=== PATIENT | male | born 2000 | race Asian ===

== ENCOUNTER 2020-10-20 18:35 | Emergency (ER) | payer MEDICAID ==
[~2020-10-20] VITALS: Ht 180.3 cm; Wt 72.7 kg
[2020-10-20] MEDS ORDERED: HYDROCODONE/ACETAMINOPHEN 5-325 MG TABLET PO ONE (20:00)
[2020-10-20 20:40] VITALS: BP 131/86
== END 2020-10-20 21:00 | disposition home or self-care (01) ==
LOC: EMS 18:38
DX: S43.401A Unspecified sprain of right shoulder joint, initial encounter (principal); Z91.010 Allergy to peanuts; W21.05XA Struck by basketball, initial encounter; Y93.67 Activity, basketball; Y92.89 Other specified places as the place of occurrence of the external cause; Y99.8 Other external cause status
CPT/HCPCS: 71045; 99284

== ENCOUNTER 2020-12-12 10:37 | Emergency (ER) | payer MEDICAID ==
[~2020-12-12] VITALS: Ht 182.9 cm; Wt 70.5 kg
[2020-12-12 11:30] VITALS: BP 117/75
== END 2020-12-12 11:56 | disposition home or self-care (01) ==
LOC: EMS 10:40
DX: L30.9 Dermatitis, unspecified (principal); J45.909 Unspecified asthma, uncomplicated; F12.90 Cannabis use, unspecified, uncomplicated; Z91.010 Allergy to peanuts
CPT/HCPCS: 99283; Z7502

== ENCOUNTER 2021-09-08 10:13 | Emergency (ER) | payer SELFPAY ==
[~2021-09-08] VITALS: Ht 182.9 cm; Wt 70.0 kg
[2021-09-08 10:37] VITALS: BP 122/59
== END 2021-09-08 12:00 | disposition home or self-care (01) ==
LOC: EMS 10:20
DX: M25.561 Pain in right knee (principal); Z91.010 Allergy to peanuts
CPT/HCPCS: 29505; 99283

== ENCOUNTER 2022-01-25 10:59 | Emergency (ER) | payer SELFPAY ==
[~2022-01-25] VITALS: Ht 182.9 cm; Wt 72.7 kg
[2022-01-25 11:06] VITALS: BP 124/65
[2022-01-25 11:16] LABS: COVID AG,FIA SOURCE NASAL SWAB
[2022-01-25 11:33] LABS: INFLUENZA TYPE A NEGATIVE FOR TYPE A (NEGATIVE); INFLUENZA TYPE B NEGATIVE FOR TYPE B (NEGATIVE)
[2022-01-25] MEDS ORDERED: IBUPROFEN 600 MG TABLET PO ONE (12:15)
== END 2022-01-25 12:44 | disposition home or self-care (01) ==
LOC: EMS 10:59
DX: U07.1 COVID-19 (principal); Z91.010 Allergy to peanuts
CPT/HCPCS: 87804; 99283

== ENCOUNTER 2022-02-23 16:34 | Emergency (ER) | payer SELFPAY ==
[~2022-02-23] VITALS: Ht 180.3 cm; Wt 72.7 kg
[2022-02-23 16:59] VITALS: BP 104/53
== END 2022-02-23 22:15 | disposition left against medical advice (07) ==
LOC: EMS 16:34
DX: L02.01 Cutaneous abscess of face (principal); Z53.21 Procedure and treatment not carried out due to patient leaving prior to being seen by health care provider

== ENCOUNTER 2022-09-28 21:28 | Emergency (ER) | payer MEDICAID ==
[~2022-09-28] VITALS: Ht 180.3 cm; Wt 72.7 kg
[2022-09-28] MEDS ORDERED: IBUPROFEN 600 MG TABLET PO ONE (22:00)
[2022-09-28 23:41] VITALS: BP 110/60
== END 2022-09-28 23:46 | disposition home or self-care (01) ==
LOC: EMS 21:29
DX: S63.602A Unspecified sprain of left thumb, initial encounter (principal); X58.XXXA Exposure to other specified factors, initial encounter; Y93.89 Activity, other specified; Y92.89 Other specified places as the place of occurrence of the external cause; Y99.8 Other external cause status
CPT/HCPCS: 99283

== ENCOUNTER 2022-11-09 01:47 | Emergency (ER) | payer MEDICAID ==
[~2022-11-09] VITALS: Ht 177.8 cm; Wt 72.7 kg
[2022-11-09 02:42] LABS: COVID AG,FIA SOURCE NASAL SWAB
[2022-11-09 03:29] VITALS: BP 116/63
== END 2022-11-09 03:32 | disposition home or self-care (01) ==
LOC: EMS 01:48
DX: H66.93 Otitis media, unspecified, bilateral (principal); J02.9 Acute pharyngitis, unspecified; Z20.822 Contact with and (suspected) exposure to COVID-19; Z91.010 Allergy to peanuts
CPT/HCPCS: 87430; 99283

== ENCOUNTER 2023-01-03 10:28 | Emergency (ER) | payer MEDICAID ==
[~2023-01-03] VITALS: Ht 180.3 cm; Wt 72.7 kg
[2023-01-03 10:41] VITALS: TEMP 97.9
[2023-01-03] MEDS ORDERED: IBUPROFEN 600 MG TABLET PO ONE (12:15)
[2023-01-03 13:15] VITALS: BP 135/74; PULSE 65; RESP 18
[2023-01-03] MEDS ORDERED: IBUP-1492 PO (13:31)
== END 2023-01-03 13:59 | disposition home or self-care (01) ==
LOC: EMS 10:33
DX: S93.402A Sprain of unspecified ligament of left ankle, initial encounter (principal); Z98.890 Other specified postprocedural states; Z91.010 Allergy to peanuts; X50.1XXA Overexertion from prolonged static or awkward postures, initial encounter; Y93.67 Activity, basketball; Y92.89 Other specified places as the place of occurrence of the external cause; Y99.8 Other external cause status
CPT/HCPCS: 99283

== ENCOUNTER 2023-02-15 19:30 | Emergency (ER) | payer MEDICAID ==
[~2023-02-15] VITALS: Ht 180.3 cm; Wt 75.0 kg
[~2023-02-15 19:30] MED LIST: IBUP-1492 PO
[2023-02-15 19:48] VITALS: BP 115/61; PULSE 54; RESP 16; TEMP 98.4
== END 2023-02-15 22:36 | disposition left against medical advice (07) ==
LOC: EMS 19:35
DX: L29.9 Pruritus, unspecified (principal); Z53.21 Procedure and treatment not carried out due to patient leaving prior to being seen by health care provider
CPT/HCPCS: 99281; Z7502

== ENCOUNTER 2023-05-11 11:00 | Emergency (ER) | payer MEDICAID ==
[~2023-05-11] VITALS: Ht 180.3 cm; Wt 72.7 kg
[2023-05-11 11:18] VITALS: TEMP 98.2
[2023-05-11 11:22] LABS: COVID AG,FIA SOURCE NASAL SWAB
[2023-05-11 11:49] LABS: RAPID GROUP A STREP NEGATIVE (NEGATIVE)
[2023-05-11 11:55] LABS: SARS-COV2 (COVID) ANTIGEN,FIA Negative (Negative)
[2023-05-11 11:57] LABS: INFLUENZA TYPE A NEGATIVE FOR TYPE A (NEGATIVE); INFLUENZA TYPE B NEGATIVE FOR TYPE B (NEGATIVE)
[2023-05-11] MEDS ORDERED: ACETAMINOPHEN 500 MG TABLET PO ONE (12:15)
[2023-05-11 12:47] VITALS: BP 111/62; PULSE 62; RESP 18
== END 2023-05-11 14:39 | disposition home or self-care (01) ==
LOC: EMS 11:12
DX: B34.9 Viral infection, unspecified (principal); Z91.010 Allergy to peanuts; Z20.822 Contact with and (suspected) exposure to COVID-19
CPT/HCPCS: 87430; 87804; 99283